=== PATIENT | female | born 1985 | race African-American/Black ===

== ENCOUNTER 2018-05-14 22:13 | Emergency (ER) | payer OTHER ==
[2018-05-14] MEDS ORDERED: predniSONE 20 MG TAB ONE (22:38)
== END 2018-05-14 22:43 | disposition home or self-care (01) ==
LOC: SCSER 22:13
DX: O99.89 Other specified diseases and conditions complicating pregnancy, childbirth and the puerperium (principal); R51 Headache; O99.511 Diseases of the respiratory system complicating pregnancy, first trimester; J45.909 Unspecified asthma, uncomplicated; Z79.1 Long term (current) use of non-steroidal anti-inflammatories (NSAID); Z3A.12 12 weeks gestation of pregnancy
CPT/HCPCS: 99283; J7506

== ENCOUNTER 2018-06-16 07:20 | Emergency (ER) | payer OTHER ==
[2018-06-16] MEDS ORDERED: Acetaminophen 500 MG TAB ONE (07:55)
[2018-06-16 08:09] LABS: Hemoglobin 8.7 g/dL (12.0-16.0); Mean Corpuscular HGB CONC 28.6 g/dL (32.0-36.0); Mean Corpuscular Hemoglobin 19.4 pg (27.0-31.0); Mean Corpuscular Volume 67.8 fL (78.0-98.0); Mean Platelet Volume 6.6 fL (7.4-10.4); Platelet Count 311 thou/uL (130-400); RBC Distribution Width 19.3 % (11.5-14.5); Red Blood Cell (RBC) Count 4.47 mill/uL (4.20-5.40); White Blood Cell (WBC) Count 6.5 thou/uL (4.8-10.8)
[2018-06-16 08:12] LABS: Anion Gap 13 mmol/L (10-20); BUN (Urea Nitrogen) 6 mg/dL (7.0-18.7); Calc. Creatinine Clearance 0 mL/min (70-130); Carbon Dioxide 21 mmol/L (22-29); Chloride 107 mmol/L (98-107); Estimated GFR-MDRD Greater than 90; Glucose 88 mg/dL (70-105); Potassium 3.7 mmol/L (3.5-5.1); Sodium 137 mmol/L (136-145)
[2018-06-16 08:20] LABS: #Basophils 0.1 thou/uL (0.0-0.2); #Eosinphils 0.3 thou/uL (0.0-0.7); #Lymphocytes 1.4 thou/uL (1.20-3.40); #Monocytes 0.8 thou/uL (0.11-0.59); %Basophils 1.1 % (0.0-1.0); %Lymphocytes 21.4 % (21.0-51.0); %Monocytes 11.9 % (0.0-10.0); %Neutrophils 61.7 % (42.0-75.0); Anisocytosis SLIGHT = 6-15 cells (100X) (0-5/hpf); Hypochromia MODERATE=16-30 cells (100X) (0-5/hpf); MDiff Complete? YES; Microcytosis MODERATE=15-30 cells (100X) (0-5/hpf); PLT Morphology Comment Appears Adequate; Reflex for Review?? NO
--- NOTE | 2018-06-16 08:44 | RAD ---
LEFT FOOT 3 VIEWS: Date: 06/16/18 HISTORY: Fall, left foot pain. FINDINGS/IMPRESSION: No acute fracture or dislocation is identified. POS: GEE
== END 2018-06-16 08:52 | disposition home or self-care (01) ==
LOC: SCSER 07:20
DX: O9A.212 Injury, poisoning and certain other consequences of external causes complicating pregnancy, second trimester (principal); S93.602A Unspecified sprain of left foot, initial encounter; O99.89 Other specified diseases and conditions complicating pregnancy, childbirth and the puerperium; R55 Syncope and collapse; O99.512 Diseases of the respiratory system complicating pregnancy, second trimester; J45.909 Unspecified asthma, uncomplicated; O99.012 Anemia complicating pregnancy, second trimester; D57.3 Sickle-cell trait; Z3A.18 18 weeks gestation of pregnancy
CPT/HCPCS: 80048; 85025; 93005

== ENCOUNTER 2018-07-15 08:40 | Emergency (ER) | payer OTHER | END 2018-07-15 09:14 | disposition home or self-care (01) | LOC: SCSER 08:40 | DX: O98.512 Other viral diseases complicating pregnancy, second trimester (principal); B34.9 Viral infection, unspecified; O99.512 Diseases of the respiratory system complicating pregnancy, second trimester; J45.909 Unspecified asthma, uncomplicated; Z79.899 Other long term (current) drug therapy; Z3A.22 22 weeks gestation of pregnancy | CPT/HCPCS: 99283 ==

== ENCOUNTER 2019-04-23 23:02 | Emergency (ER) | payer OTHER, SELFPAY ==
[2019-04-23] MEDS ORDERED: Ondansetron PF 4 MG/2 ML Vial ONE (23:45)
[2019-04-23] MEDS ORDERED: Acetaminophen 500 MG TAB ONE (23:45)
[2019-04-23 23:58] LABS: #Basophils 0.1 thou/uL (0.0-0.2); #Eosinphils 0.3 thou/uL (0.0-0.7); #Lymphocytes 2.1 thou/uL (1.20-3.40); #Monocytes 0.7 thou/uL (0.11-0.59); #Neutrophils 5.6 thou/uL (1.40-6.50); %Basophils 0.8 % (0.0-1.0); %Eosinophils 3.1 % (0.0-10.0); %Lymphocytes 23.7 % (21.0-51.0); %Monocytes 7.8 % (0.0-10.0); %Neutrophils 64.7 % (42.0-75.0); Hemoglobin 12.4 g/dL (12.0-16.0); Mean Corpuscular HGB CONC 32.8 g/dL (32.0-36.0); Mean Corpuscular Hemoglobin 25.8 pg (27.0-31.0); Mean Corpuscular Volume 78.6 fL (78.0-98.0); Mean Platelet Volume 7.5 fL (7.4-10.4); Platelet Count 279 thou/uL (130-400); RBC Distribution Width 12.6 % (11.5-14.5); Red Blood Cell (RBC) Count 4.82 mill/uL (4.20-5.40); White Blood Cell (WBC) Count 8.6 thou/uL (4.8-10.8)
[2019-04-24 00:06] LABS: Pregnancy Test - Urine (BHCG) POSITIVE (Negative); Specific Gravity 1.018 (1.002-1.036)
[2019-04-24 00:07] LABS: Pregu Control Background? CLEAR/WHITE (CLR/WHITE); Pregu Control Bar Appear? YES (CONTROL BAR)
[2019-04-24 00:14] LABS: Bacteria/HPF None Seen HPF (None Seen); Bilirubin Negative (Negative); Blood, Urine Negative (Negative); Clarity Turbid (Clear); Glucose, Urine (Dipstick) Normal (Negative); Leukocyte 500 Leu/uL (Negative); Nitrite Negative (Negative); Protein, Urine (Dipstick) 10 mg/dL (Neg-Trace); Urobilinogen Normal mg/dL (Less than 2); WBC/HPF 0-3 HPF (0-3)
[2019-04-24 00:20] LABS: ALT (SGPT) 7 U/L (8-55); AST (SGOT) 11 U/L (5-34); Alkaline Phosphatase 62 U/L (40-110); Anion Gap 14 mmol/L (10-20); BUN (Urea Nitrogen) 7 mg/dL (7.0-18.7); Bilirubin, Total 0.2 mg/dL (0.2-1.2); Calc. Creatinine Clearance 0 mL/min (70-130); Carbon Dioxide 22 mmol/L (22-29); Chloride 104 mmol/L (98-107); Estimated GFR-MDRD Greater than 90; Globulin 3.5 g/dL (2.4-3.5); Glucose 76 mg/dL (70-105); Potassium 3.9 mmol/L (3.5-5.1); Protein, Total 7.5 g/dL (6.0-8.3); Sodium 136 mmol/L (136-145)
--- NOTE | 2019-04-24 08:12 | ULT ---
PRELIMINARY REPORT/[facility]/EMERGENCY AFTER HOURS PROCEDURE: PROCEDURE INFORMATION: Exam: US First Trimester, Transabdominal and US Duplex Artery or Vein, Ovaries, Limited Exam date and time: 04/24/2019 1:28 AM Clinical history: 33 years old, female; complicated by abdominal or pelvic pain; Lower; Fir st trimester; Gestational age or lmp: 10w5d; ; Patient HX: Pelvic cramping pain x 2 days, paco sea, no vaginal bleeding; Additional info: Recent vaginal delivery 11/24/18 TECHNIQUE: Imaging protocol: Real-time transabdominal obstetrical ultrasound of the maternal pelvis and a first trimester , less than 14 weeks 0 days, with image documentation. Real-time duplex ultrasound scan of the arterial or venous flow of the ovaries with B-mode, color Doppler flow and spectral waveform analysis, limited Duplex. COMPARISON: No relevant prior studies available. FINDINGS: Transabdominal obstetrical ultrasound was performed. Duplex ultrasound scan with color Doppler flow a nd spectral waveform analysis was also performed for evaluation of pelvic and ovarian blood flow and torsion. GESTATION: Gestation: Single live intrauterine gestation. Yolk sac is unremarkable. Heart rate: 169bpm Placenta: Small subchorionic bleed. Amniotic fluid: Amniotic and chorionic fluid are normal for gestational age. BIOMETRY: Estimated gestational age: CRL: 3.18cm-10w0d MATERNAL: Uterus: Unremarkable. Cervix: Unremarkable. Right adnexa: Right ovary is not visualized. Left adnexa: Left ovarian probable corpus lutei. Otherwise unremarkable. Normal duplex of the ovary. No evidence of torsion. Intraperitoneal: No significant free fluid. IMPRESSION: Single viable intrauterine . Small subchorionic bleed. Thank you for allowing us to participate in the care of your patient. Dictated and Authenticated by: Deion Tolbert MD 04/24/2019 2:28 AM Central Time ([place] & [place]) FINAL REPORT TRANSABDOMINAL PELVIC ULTRASOUND WITH GIRARD SCALE AND COLOR FLOW AND SPECTRAL DOPPLER IMAGING: I agree with the preliminary report given by Laryr. POS: OFF
== END 2019-04-24 02:50 | disposition home or self-care (01) ==
LOC: ERS 23:02
DX: O23.41 Unspecified infection of urinary tract in pregnancy, first trimester (principal); O20.8 Other hemorrhage in early pregnancy; Z3A.10 10 weeks gestation of pregnancy
CPT/HCPCS: 76856; 80053; 81003; 81015; 81025; 84702; 85025; 96361; 96374; J2405

== ENCOUNTER 2023-06-12 23:50 | Emergency (ER) | payer OTHER ==
[2023-06-13] MEDS ORDERED: Ketorolac Tromethamine 30 MG/ML VIAL ONE (00:33)
== END 2023-06-13 01:14 | disposition home or self-care (01) ==
LOC: ERS 23:50
DX: M53.3 Sacrococcygeal disorders, not elsewhere classified (principal)
CPT/HCPCS: 96372; 99283; J1885